=== PATIENT | female | born 1955 | race Caucasian/White ===

== ENCOUNTER → 2023-04-21 08:38 | Outpatient (REF) | payer OTHER, SELFPAY | LOC: HWRAD 08:38 | PROVIDERS: ATTENDING PHYSICIAN Specialist; FAMILY PHYSICIAN Family Medicine | DX: N20.0 Calculus of kidney (principal) | CPT/HCPCS: 74018 ==

== ENCOUNTER → 2023-05-09 14:41 | Outpatient (REF) | payer OTHER, SELFPAY | LOC: HWWDC 14:41 | PROVIDERS: ATTENDING PHYSICIAN Obstetrics & Gynecology; FAMILY PHYSICIAN Family Medicine | DX: Z12.31 Encounter for screening mammogram for malignant neoplasm of breast (principal) | CPT/HCPCS: 77063; 77067 ==

== ENCOUNTER → 2023-05-20 10:01 | Outpatient (REF) | payer OTHER, SELFPAY | LOC: HWRAD 10:01 | PROVIDERS: ATTENDING PHYSICIAN Specialist; FAMILY PHYSICIAN Family Medicine | DX: R31.0 Gross hematuria (principal); N20.0 Calculus of kidney | CPT/HCPCS: 74018 ==

== ENCOUNTER → 2023-06-12 13:57 | Outpatient (REF) | payer OTHER, SELFPAY | LOC: HWRAD 13:57 | PROVIDERS: ATTENDING PHYSICIAN Specialist; FAMILY PHYSICIAN Family Medicine | DX: R31.0 Gross hematuria (principal); N20.0 Calculus of kidney | CPT/HCPCS: 76770 ==

== ENCOUNTER 2023-06-24 06:48 | Day surgery (SDC) | payer OTHER, SELFPAY ==
[2023-06-18 07:18] VITALS: BMI 29.5
[2023-06-18 08:51] LABS: Hematocrit 36.6 % (37.0-47.0); Mean Corp Hgb Conc. 32.8 g/dL (33.0-37.0); Mean Corpuscular Hgb 30.2 pg (27.0-31.0); Mean Corpuscular Volume 92.2 fL (81.0-99.0); Mean Platelet Volume 10.4 fL (7.4-10.4); Platelet Count 249 10^3/uL (130-400); Red Blood Cell Count 3.97 10^6/uL (4.20-5.40); Red Cell Dist. Width 13.2 % (11.5-14.5); White Blood Cell Count 6.3 10^3/uL (4.8-10.8)
[2023-06-18 08:56] LABS: Urine Albumin Trace (Neg - Trace); Urine Bilirubin Negative (Negative); Urine Character Clear (Clear); Urine Color Yellow; Urine Glucose Negative (Negative); Urine Ketone Negative (Negative); Urine Leukocyte Negative (Negative); Urine Nitrite Negative (Negative); Urine Occult Blood 1+ (Negative); Urine Urobilinogen Negative (Neg - 1+)
[2023-06-18 09:10] LABS: Urine Urothelial Cell 0-2 /LPF (FEW)
[2023-06-18 09:11] LABS: Urine Bacteria Few (Negative)
[2023-06-18 09:20] LABS: APTT 29.3 Sec (23.4-35.0); INR 1.05; PT 13.7 Sec (11.4-14.6)
[2023-06-18 09:47] LABS: Blood Urea Nitrogen 14 mg/dl (7-17); Calcium 9.4 mg/dl (8.4-10.2); Carbon Dioxide 27 mmol/L (22-30); Chloride 104 mmol/L (98-107); Estimated Creatinine Clearance 84 ml/min; Glucose 77 mg/dl (70-99); Potassium 4.2 mmol/L (3.5-5.1); Sodium 138 mmol/L (135-145); eGFR > 60.00
[2023-06-24] VITALS (8 sets, daily range): BP systolic 102–133; BP diastolic 61–74; BMI 29.5
[2023-06-24] MEDS: NORMOSOL-R 1000 IV (10:13)
== END 2023-06-24 14:22 | disposition home or self-care (01) ==
LOC: SDS 06:48
PROVIDERS: ATTENDING PHYSICIAN Specialist; FAMILY PHYSICIAN Family Medicine
DX: N20.0 Calculus of kidney (principal)
CPT/HCPCS: 52356; 36415; 74018; 76000; 80048; 81003; 81015; 82365; 85027; 85610; 85730; 93005; C1894; C2617; J1580

== ENCOUNTER → 2023-11-06 09:20 | Outpatient (REF) | payer OTHER, SELFPAY | LOC: WDC 09:20 | PROVIDERS: ATTENDING PHYSICIAN Obstetrics & Gynecology; FAMILY PHYSICIAN Family Medicine | DX: N63.20 Unspecified lump in the left breast, unspecified quadrant (principal); N63.22 Unspecified lump in the left breast, upper inner quadrant | CPT/HCPCS: 76642; 77061; 77065 ==

== ENCOUNTER → 2024-02-16 11:26 | Outpatient (REF) | payer OTHER, SELFPAY | LOC: HWRAD 11:26 | PROVIDERS: ATTENDING PHYSICIAN Specialist; FAMILY PHYSICIAN Family Medicine | DX: N20.0 Calculus of kidney (principal) | CPT/HCPCS: 74018 ==

== ENCOUNTER 2024-03-16 06:27 | Day surgery (SDC) | payer OTHER, SELFPAY ==
[2024-03-15 08:52] LABS: Hematocrit 39.6 % (37.0-47.0); Hemoglobin 13.2 g/dL (12.0-16.0); Mean Corp Hgb Conc. 33.3 g/dL (33.0-37.0); Mean Corpuscular Hgb 31.3 pg (27.0-31.0); Mean Corpuscular Volume 93.8 fL (81.0-99.0); Mean Platelet Volume 10.6 fL (7.4-10.4); Platelet Count 229 10^3/uL (130-400); Red Blood Cell Count 4.22 10^6/uL (4.20-5.40); Red Cell Dist. Width 12.4 % (11.5-14.5); White Blood Cell Count 6.8 10^3/uL (4.8-10.8)
[2024-03-15 09:10] LABS: Blood Urea Nitrogen 10 mg/dl (7-17); Calcium 9.1 mg/dl (8.4-10.2); Carbon Dioxide 30 mmol/L (22-30); Chloride 101 mmol/L (98-107); Glucose 81 mg/dl (70-99); Potassium 3.9 mmol/L (3.5-5.1); Sodium 139 mmol/L (135-145); eGFR > 60.00
[2024-03-15 14:01] VITALS: BMI 28.0
[2024-03-16] VITALS (9 sets, daily range): BP systolic 112–127; BP diastolic 58–73; BMI 28.0
[2024-03-16] MEDS: NORMOSOL-R/PLASMALYTE-A 1000 IV (13:43)
[2024-03-16] MEDS: DETROL LA 4 MG PO (17:37)
== END 2024-03-16 18:41 | disposition home or self-care (01) ==
LOC: SDS 06:27
PROVIDERS: ATTENDING PHYSICIAN Specialist; FAMILY PHYSICIAN Family Medicine
DX: N20.0 Calculus of kidney (principal)
CPT/HCPCS: 52356; 36415; 74018; 76000; 80048; 82365; 85027; 93005; C1894; C2617

== ENCOUNTER → 2024-05-05 13:50 | Outpatient (REF) | payer OTHER, SELFPAY | LOC: HWRAD 13:50 | PROVIDERS: ATTENDING PHYSICIAN Specialist; FAMILY PHYSICIAN Family Medicine | DX: N20.0 Calculus of kidney (principal) | CPT/HCPCS: 74018 ==

== ENCOUNTER → 2024-06-29 07:13 | Outpatient (REF) | payer OTHER, SELFPAY | LOC: HWRAD 07:13 | PROVIDERS: ATTENDING PHYSICIAN Family Medicine | DX: R07.89 Other chest pain (principal) | CPT/HCPCS: 71101 ==

== ENCOUNTER 2024-10-07 02:12 | Emergency (ER) | payer OTHER, SELFPAY ==
[2024-10-07 02:14] VITALS: BP 132/78
[2024-10-07] MEDS: TYLENOL 1000 MG PO (04:00)
[2024-10-07] MEDS: LIDOCAINE 4% PATCH 1 PATCH TOPICAL (04:01)
[2024-10-07 04:05] VITALS: BMI 27.5
--- NOTE | 2024-10-07 04:43 | ED.GENMED ---
History of Present Illness
General
Chief Complaint: Musculo-Skeletal Complaint
Source: patient
Exam Limitations: none
Time Seen by Provider: 10/07/24 02:50
Nursing documentation reviewed up to this point in time: agreed with
History of Present Illness
History of Present Illness:
Note:
CHIEF COMPLAINT(S)
Shoulder pain and impaired mobility.
HISTORY OF PRESENT ILLNESS
The patient is a 69-year-old female with a history of rotator cuff surgery in 2009, prior PE on eliquis, asthma, GERD, PCOS, presents today with concerns of right shoulder pain for the past week. She reported experiencing overuse of her shoulder and
subsequent shoulder pain. She noted, 'I jerked a certain way, and I felt this pain.' She experiences difficulty lifting her arm due to the excruciating pain. Although the pain was initially bearable, recent jerking incidents have exacerbated it to
the point that she cannot lift her arm, describing the pain as severe and debilitating. The patient mentioned an MRI was performed on September 23, which revealed two tears and a full-thickness tear necessitating a shoulder replacement. She was told
that the previous rotator cuff surgery she had had failed. She has an appointment with Dr. Daugherty on October 21 to address the surgery. Despite the pain, the patient expressed reluctance to use medication, opting instead for an occasional
tramadol, which provided little relief. She is also on blood thinners. The patient reported using heat at home, which has been helpful. She expressed concerns about frozen shoulder and is considering using a sling for temporary relief.
PAST MEDICAL AND SURGICAL HISTORY
The patient underwent rotator cuff surgery in 2009. She also had bariatric surgery in 2016.
SOCIAL DETERMINANTS AFFECTING HEALTH
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
MEDICATIONS
The patient has been using tramadol occasionally but finds it largely ineffective.
REVIEW OF SYSTEMS
- Musculoskeletal: Severe shoulder pain, inability to lift the arm.
- Neurological: No numbness or tingling reported.
- General: No chest pain reported.
PHYSICAL EXAM
General: Alert, no acute distress.
Skin: Warm, dry.
Head: Normocephalic, atraumatic.
Neck: Supple, trachea midline.
Eyes, Ears, Nose, and Throat: Oral mucosa moist.
Cardiovascular: Normal peripheral perfusion, no edema.
Respiratory: Respirations are non-labored.
Gastrointestinal: Abdomen nondistended.
Musculoskeletal: Limited range of motion in the shoulder, significant pain on movement.
Neurological: Alert and oriented to person, place, time, and situation, no focal neurological deficit observed.
Psychiatric: Cooperative, appropriate mood & affect.
PROBLEM LIST
Acute:
- Severe shoulder pain with movement limitation.
Chronic:
- Rotator cuff tear requiring surgery.
PLAN
- Prompt follow up orthopedist
- Begin a short course of steroids for acute inflammation
- Discuss the use of a sling for temporary pain relief while addressing concerns about frozen shoulder.
- Recommend [id number] acetaminophen for pain management
- Consider stronger analgesics if needed and appropriate safety can be ensured.
- Discuss the importance of follow-up with the orthopedic surgeon on October 21.
DIFFERENTIAL DIAGNOSIS
The Differential Diagnosis includes, in no particular order and is not limited to:
1. Rotator cuff tear
2. Labral tear
3. Glenohumeral arthritis
4. Shoulder impingement syndrome
5. Adhesive capsulitis (frozen shoulder)
6. Biceps tendonitis
7. Subacromial bursitis
8. Cervical radiculopathy
9. Fracture of the humerus or glenoid
10. Tendon rupture or sprain
CHART REVIEW
- Reviewed operative report from 03/16/2024 patient seen for renal stones
- Reviewed discharge summary from 08/01/2022 patient seen for cervical stenosis status post C6-C7 anterior cervical discectomy and fusion
- Reviewed discharge summary from 05/30/2017 patient seen for right retrograde pyelogram with stone extraction
MDM/DISPOSITION
The patient is a 69-year-old female with a history of rotator cuff surgery in 2010, prior PE on eliquis, asthma, GERD, PCOS, presents today with concerns of right shoulder pain for the past week. She reported experiencing overuse of her shoulder and
subsequent shoulder pain. She noted, 'I jerked a certain way, and I felt this pain'. She denies any blunt trauma. She denies any falls. She has a known and long history of rotator cuff disease in her right shoulder. Reviewed x-ray done today
which showed some calcifications but no acute fracture, no evidence of dislocation. She took prednisone in the past for these exacerbations which has helped. Her orthopedist discussed performing intra articular injections to help with the symptoms
until the symptoms improve. On physical exam, she is able to slightly externally rotate her shoulder but is unable to abduct her shoulder. She does have tenderness to palpation anteriorly. She was given lidocaine patches and Tylenol with
improvement in her symptoms. She was given a shoulder immobilizer with instructions to be careful with taking breaks from the immobilizer and doing exercises when she improves. Patient stable for discharge.
Past History
Past History
ED Past Medical History: Asthma, HTN (resolved after bariatric surgery), Hypercholesterolemia (resolved after bariatric surgery), NIDDM (resolved after bariatric surgery) and Other (dvt, Kidney stones)
ED Past Surgical History: Cholecystectomy, Orthopedic (R rotator cuff & r knee ACL, Left meniscus repair, lipoma removal,), Urological (lithotomy ovarian) and Other (Bariatric surgery)
Social History
Tobacco: Former smoker
Alcohol: Occasional
Drug: None
Personal:
Living: with family
Family History
Family History: Other (Noncontributory)
Review of Systems
Review of Systems
All Other Systems: ROS reviewed and negative except as documented in HPI and ROS
Phy Exam
Physical Exam
Physical Exam:
see hpi
Course
Orders/Labs/Results
Orders:
Orders
10/07/24 02:19
Shoulder, Right, Trauma [CR Shoulder, Trauma - Right] Urgent
Comment:
Reason For Exam: UNABLE TO RAISE ARM.
10/07/24 03:36
Acetaminophen [Tylenol] 1,000 mg PO NOW STA
10/07/24 03:37
Lidocaine [Lidocaine 4% Patch] 1 patch TOPICAL DAILY ONE
Apply Lidocaine patch(s) to:: right anterior shoulder/arm
10/07/24 03:38
Shoulder Immobilizer Right- Tx ONCE
Vital Signs
Initial and Last Documented VS:
Initial Vital Signs
Temp Pulse Resp BP Pulse Ox
98 F 88 20 132/78 100
10/07/24 02:14 10/07/24 02:14 10/07/24 02:14 10/07/24 02:14 10/07/24 02:14
Last Documented Vital Signs
Temp Pulse Resp BP Pulse Ox
98 F 88 20 132/78 98
10/07/24 02:14 10/07/24 02:14 10/07/24 02:14 10/07/24 02:14 10/07/24 04:52
*Pulse Oximetry
SaO2: 98
Oxygen Mode of Delivery: Room air
Patient hypoxic: no
*Critical Care Note
Total Time (30-74mins, 75-104mins- exclusive of procedures): Not Applicable
ED Attending Note
-
Portions of this chart may have been created with voice recognition software.� Occasional wrong word or��sound alike� substitutions may have occurred due to the inherent limitations of voice recognition software.
Discharge Plan
Departure
Patient Disposition: Home (Routine Discharge)
Date of Disposition: 10/07/24
Time of Disposition: 04:36
Patient with high blood pressure during this ER visit?: Yes
Condition: Good
Discharge Problem:
Rotator cuff injury
Instructions: Rotator Cuff Tendinitis Stretching Exercises, Rotator Cuff Tear Exercises, How to use a shoulder sling, BLOOD PRESSURE
Prescriptions:
New
prednisone 20 mg tablet
40 mg PO DAILY 5 Days Qty: 10 0RF
lidocaine 5 % adhesive patch,medicated
1 patch topical DAILY Qty: 15 0RF
No Action
Eliquis 2.5 MG tablet
2.5 mg PO BID
cholecalciferol (vitamin D3) 2,000 UNITS tablet
50,000 unit PO MOFR
potassium citrate 10 MEQ tablet extended release
10 meq PO QID
iron 159 mg (45 mg iron) Tablet Extended Release
159 mg PO DAILY
Prolia 60 mg/mL Syringe
60 mg SC [id number]
Bariatric Multivitamins 45 mg iron- 800 mcg-120 mcg Capsule
1 cap PO DAILY
omeprazole 20 mg tablet,delayed release (DR/EC)
20 mg PO PRN PRN (Reason: heartburn)
Rx Instructions:
Home medication.
Take daily while on post-op pain meds.
Referrals:
Elian Pak MD [Family Provider, Family Practice]
Activity Restrictions/Additional Instructions:
You been sent home as a shoulder immobilizer. I recommend taking breaks from the immobilizer and do the stretches as listed on her discharge paperwork to aid in mobility as you are starting to feel better. Please 15 prednisone. Please start
taking 40 mg once daily for 5 days. You can take Tylenol with this as well but please avoid NSAIDs taking the prednisone and because you are on a blood thinner.
Please call your orthopedist tomorrow to schedule follow-up appointment and address sooner surgical intervention. PLEASE RETURN TO THE ER SHOULD YOU DEVELOP INABILITY TO RANGE HER SHOULDER, INCREASING PAIN OR SWELLING, REDNESS SURROUNDING THE ARM,
LOSS OF SENSATION, PALLOR, OR ANY OTHER SIGNS OR SYMPTOMS CONCERNING TO YOU.
Interventions
Interventions:
*Risk Screen - Suicide Last Done: 10/07/24 02:14
*General Assessment Last Done: 10/07/24 04:06
*Neglect/Abuse Screening Last Done: 10/07/24 02:14
*ED- Fall Risk Assessment Last Done: 10/07/24 04:06
*ED COVID-19 Vaccine History Last Done: 10/07/24 04:06
*Nursing Disposition Last Done: 10/07/24 04:52
ED-Musculoskeletal Assessment Last Done: 10/07/24 04:08
Discharge Date and Time
Discharge Date/Time: 10/07/24 04:53
Print Language: NORWEGI[place]
== END 2024-10-07 04:53 | disposition home or self-care (01) ==
LOC: EMR 02:12
PROVIDERS: EMERGENCY PHYSICIAN Emergency Medicine; FAMILY PHYSICIAN Family Medicine
DX: S46.001A Unspecified injury of muscle(s) and tendon(s) of the rotator cuff of right shoulder, initial encounter (principal); X58.XXXA Exposure to other specified factors, initial encounter; E78.00 Pure hypercholesterolemia, unspecified; J45.909 Unspecified asthma, uncomplicated; Z86.711 Personal history of pulmonary embolism; Z79.01 Long term (current) use of anticoagulants; Z86.718 Personal history of other venous thrombosis and embolism; Z87.891 Personal history of nicotine dependence; Z98.84 Bariatric surgery status; Z90.49 Acquired absence of other specified parts of digestive tract
CPT/HCPCS: 99283; 73030